=== PATIENT | female | born 1975 | race Caucasian/White ===

== ENCOUNTER 2016-09-05 17:38 | Emergency (ER) | payer MEDICAID ==
--- NOTE | 2016-09-05 18:46 | ED Physician Chart ---
Chief Complaint/HPI - Patient Information Date Seen:: 09/05/16 Time Seen:: 17:42 Chief Complaint:: L shoulder pain with movements for 3 days. History of Present Illness:: Pt c/o L shoulder pain for about 3 days, precipitated with L shoulder movements. Pt did a lot of gift wrapping and heavy lifting prior to onset of her pain. No other known injury or trauma. Pt did not take any analgesic today. No weakness or numbness. Allergies:: Allergies Allergy/AdvReac Type Severity Reaction Status Date / Time No Known Allergies Allergy Verified 09/05/16 18:06 Vitals:: Vital Signs - 8 hr 09/05/16 18:07 Temp 98.1 F HR 65 RR 21 BP 125/76 O2 Sat % 100 Historian:: Patient Family MD/PCP:: Dr. Collier LMP:: 08/30/16 Review:: Nurse's Note Reviewed Review of Systems - Review of Systems General/Constitutional: No fever, No chills, No weight loss, No weakness, No diaphoresis, No edema, No loss of appetite Skin: No skin lesions, No rash, No bruising Head: No headache, No light-headedness Eyes: No loss of vision, No pain, No diplopia ENT: No earache, No nasal drainage, No sore throat, No tinnitus Neck: No neck pain, No swelling, No thyromegaly, No stiffness, No mass noted Cardio Vascular: No chest pain, No palpitations, No PND, No orthopnea, No edema Pulmonary: No SOB, No cough, No sputum, No wheezing GI: No nausea, No vomiting, No diarrhea, No pain, No melena, No hematochezia, No constipation, No hematemesis G/U: No dysuria, No frequency, No hematuria Musculoskeletal: Bone or joint pain (L shoulder pain, see HPI.) Endocrine: No polyuria, No polydipsia Psychiatric: No prior psych history Hematopoietic: No bruising, No lymphadenopathy Allergic/Immuno: No urticaria, No angioedema Neurological: No syncope, No focal symptoms, No weakness, No paresthesia, No headache, No seizure, No dizziness, No confusion, No vertigo Past Medical History - Past Medical History Past Medical History: No significant medical hx Family History: None Social History: Non Smoker, No Alcohol, No Drug Use, , Other (lives with her .) Employment:: unemployed. Surgical History: other (L ankle surgery about 9 y/a due to fx.) Psychiatricy History: None Medication: Reviewed Physical Exam - Physical Examination General/Constitutional: Awake, Well-developed, well-nourished, Alert, No distress, GCS 15, Non-toxic appearing, Ambulatory Other Gen/Cons comments:: Breathes comfortably, speaks clearly, and ambulates without difficulty. Head: Atraumatic Eyes: Lids, conjuctiva normal, PERRL, EOMI Skin: Nl inspection, No rash, No skin lesions, No ecchymosis, Well hydrated, No lymphadenopathy Neck: Nontender, Full ROM w/o pain, No nuchal rigidity, No stridor Respiratory: Nl effort/Exclusion, Clear to Auscultation, No Wheeze/Rhonchi/Rales Cardio Vascular: RRR, No murmur, gallop, rubs, NL S1 S2 Other Extremities comments:: L shoulder: Tenderness with palpation at lateral aspect. No gross deformity, swelling, erythema, crepitus, or open wound. Good passive ROM. No detectable motor/sensory/vascular deficit. Good distal pulse. Neuro/Psych: Alert/oriented (oriented x 3.), Judgement/insight normal, Mood normal, Normal gait, No focal deficits ED Septic Shock - . Is Septic Shock (SBP<90, OR Lactate>4 mmol\L) present?: No - <6hrs of presentation: Vital Signs: Vital Signs - 8 hr 09/05/16 18:07 Temp 98.1 F HR 65 RR 21 BP 125/76 O2 Sat % 100 Reassessment (Disposition) - Reassessment Reassessment:: 191 Pt feels much better. Pt requests to go home now and does not want further observation/management in hospital. Aftercare instructions given. Reassessment Condition:: Improved - Diagnosis Diagnosis:: L shoulder sprain, stable and improved. - Aftercare/Follow up Instructions Aftercare/Follow-Up Instructions:: Refer to Discharge Instructions Notes:: Wear L arm sling as directed. Limit use of L shoulder. No heavy lifting or rigorous physical activities until further physician direction. May take Motrin 200 mg tab 4 tabs po q8h prn pain, not to take first dose at least 6 hours after Toradol given here. Sprain care instructions given. F/U with PCP Dr. Collier in 2-3 days for recheck. Return to ER immediately if condition worsens or if any further questions/problems. Medication Prescribed:: None - Patient Disposition Discharge/Transfer:: Home Time:: 19:25 Condition at Disposition:: Stable, Improved
== END 2016-09-05 19:35 | disposition home or self-care (01) ==
LOC: ER 17:38
DX: S43.492A Other sprain of left shoulder joint, initial encounter (principal); X58.XXXA Exposure to other specified factors, initial encounter; Y93.89 Activity, other specified; Y92.89 Other specified places as the place of occurrence of the external cause; Y99.8 Other external cause status
CPT/HCPCS: 99283; 96372; J1885; Z7502